=== PATIENT | male | born 1955 | race Caucasian/White ===

== ENCOUNTER 2020-09-28 01:58 | Emergency (ER) | payer MEDICARE ==
[2020-09-28 02:27] LABS: HEMOGLOBIN 16.2 gm/dl (14.0-17.5); RED BLOOD COUNT 4.86 M/UL (4.20-5.50); WHITE BLOOD COUNT 16.6 K/UL (4.5-11.0)
[2020-09-28 02:44] LABS: BUN/CREATININE RATIO 19 (0-10)
[2020-09-28] MEDS ORDERED: ZOFRAN 4 MG TAB4 MG PO (06:03)
[2020-09-28] MEDS ORDERED: IBUPROFEN800 MG PO (06:03)
[2020-09-28] MEDS ORDERED: FLAGYL500 MG PO (06:03)
[2020-09-28] MEDS ORDERED: BENTYL 20MG TAB20 MG PO (06:03)
[2020-09-28] MEDS ORDERED: AUGMENTIN 875-1 EACH PO (06:03)
== END 2020-09-28 06:20 | disposition home or self-care (01) ==
LOC: ER1 01:58
PROVIDERS: Physician Assistant
DX: A09 Infectious gastroenteritis and colitis, unspecified (principal); N32.9 Bladder disorder, unspecified; I11.9 Hypertensive heart disease without heart failure; E78.5 Hyperlipidemia, unspecified; Z95.1 Presence of aortocoronary bypass graft; Z79.82 Long term (current) use of aspirin; Z79.899 Other long term (current) drug therapy
CPT/HCPCS: 71045; 71260; 80053; 81001; 82272; 82550; 82553; 83605; 83690; 83874; 84484; 85025; 85610; 93005; 96374; 96375; 99284; C9113; J2405; Q9967